=== PATIENT | female | born 1950 | race Caucasian/White ===

== ENCOUNTER 2018-04-27 08:29 | Emergency (ER) | payer OTHER ==
[2018-04-27] MEDS: KETOROLAC 30 MG INJ IM (09:28)
== END 2018-04-27 10:20 | disposition home or self-care (01) ==
LOC: FTE 08:29
DX: S49.91XA Unspecified injury of right shoulder and upper arm, initial encounter (principal); W18.39XA Other fall on same level, initial encounter; Y92.9 Unspecified place or not applicable
CPT/HCPCS: 73030; 73030-RT; 96372; 99284-25

== ENCOUNTER 2018-09-03 11:42 | Emergency (ER) | payer OTHER | END 2018-09-03 15:16 | disposition home or self-care (01) | LOC: FTE 11:42 | DX: L02.411 Cutaneous abscess of right axilla (principal) | CPT/HCPCS: 76536; 99284-25 ==

== ENCOUNTER 2018-10-05 08:08 | Inpatient (IN) | payer OTHER ==
[~2018-10-05 08:08] MED LIST: BUPIVACAINE 0.75%/DEXT (SPINAL) 2 ML INJ
[2018-10-05] MEDS ORDERED: MEPERIDINE 25 MG INJ IV (11:00)
[2018-10-05] MEDS ORDERED: hydrALAzine 20 MG INJ IV ×2 (11:00→19:30)
[2018-10-05] MEDS ORDERED: ONDANSETRON 4 MG INJ IV (11:00)
[2018-10-05] MEDS ORDERED: HYDROmorphONE 1 MG/5 ML IV SYRINGE IV ×2 (11:00)
[2018-10-05] MEDS ORDERED: EPHEDrine SULFATE 50 MG/5 ML SYG IV (11:00)
[2018-10-05] MEDS ORDERED: LABETALOL HCL 20MG INJ IV (11:00)
[2018-10-05] MEDS ORDERED: DIPHENHYDRAMINE 50 MG INJ IV (11:00)
[2018-10-05] MEDS ORDERED: ROPIVACAINE 0.2% 20 ML VIAL (11:01)
[2018-10-05] MEDS ORDERED: METOCLOPRAMIDE 10 MG INJ (11:01)
[2018-10-05] MEDS ORDERED: PROPOFOL 20 ML (11:01)
[2018-10-05] MEDS ORDERED: MIDAZOLAM 1 MG/ML 2 ML INJ (11:01)
[2018-10-05] MEDS ORDERED: morphine SULFATE/PF (10 MG/10 ML) INJ (11:01)
[2018-10-05] MEDS ORDERED: ACETAMINOPHEN 1000MG/100ML IV 100 ML (11:04)
[2018-10-05] MEDS ORDERED: CEFAZOLIN 1 GM INJ (11:16)
[2018-10-05] MEDS ORDERED: FENTAnyl 50 MCG/ML VIAL (11:17)
[2018-10-05] MEDS ORDERED: EPHEDrine SULFATE 50 MG/5 ML SYG (11:23)
[2018-10-05] MEDS: DEXTROSE 5% IVPB (11:30)
[2018-10-05] MEDS: TRANEXAMIC ACID IVPB (11:30)
[2018-10-05] MEDS: POLYMYXIN/BACITRACIN 1L IRRIG IRR (12:09)
[2018-10-05] MEDS ORDERED: METOPROLOL 5 MG INJ (12:44)
[2018-10-05] MEDS ORDERED: ONDANSETRON 4 MG INJ (13:03)
[2018-10-05] MEDS: HYDROmorphONE 1 MG/5 ML IV SYRINGE IV (13:22)
[2018-10-05] MEDS ORDERED: oxyCODONE 5 MG TAB PO (13:30)
[2018-10-05] MEDS ORDERED: NALOXONE (0.4 MG/ML) INJ IV (13:30)
[2018-10-05] MEDS: CEFAZOLIN 1 GM/50 ML (PMX) 50 ML IVPB ×2 (13:46→20:43)
[2018-10-05] MEDS: ONDANSETRON 4 MG INJ IV ×2 (13:46→20:24)
[2018-10-05] MEDS: SOD CHLORIDE 0.9% 1,000 ML IV (16:06)
[2018-10-06] MEDS: ONDANSETRON 4 MG INJ IV ×2 (01:30→09:32)
[2018-10-06] MEDS: SOD CHLORIDE 0.9% 1,000 ML IV ×3 (01:41→14:11)
[2018-10-06] MEDS: CEFAZOLIN 1 GM/50 ML (PMX) 50 ML IVPB (04:50)
[2018-10-06] MEDS: PANTOPRAZOLE (EC) 40 MG TAB PO (05:07)
[2018-10-06] MEDS: oxyCODONE 5 MG TAB PO ×2 (05:08→15:13)
[2018-10-06 05:10] LABS: ADD MAN DIFF? NO
[2018-10-06 05:13] LABS: WHITE BLOOD COUNT 6.7 10^3/ul (4.8-10.8)
[2018-10-06 05:13] LABS: BASOPHILS % 0.3 % (0.0-2.0); EOSINOPHILS % 0.1 % (0.0-7.0); HEMATOCRIT 32.3 % (37.0-47.0); LYMPHOCYTES # 1.6 10^3/ul (0.8-2.9); LYMPHOCYTES % 24.1 % (15.0-51.0); MEAN CORPUSCULAR HEMOGLOBIN 27.3 pg (29.0-33.0); MEAN CORPUSCULAR VOLUME 88.3 fl (82.0-101.0); MEAN PLATELET VOLUME 9.8 fl (7.4-10.4); MONOCYTE # 0.8 10^3/ul (0.3-0.9); NEUTROPHIL # 4.3 10^3/ul (1.6-7.5); NEUTROPHILS % 63.2 % (39.0-77.0); PLATELET COUNT 193 10^3/UL (140-415); RED BLOOD COUNT 3.66 10^6/ul (4.20-5.40); RED CELL DISTRIBUTION WIDTH 12.9 % (11.5-14.5)
[2018-10-06 05:38] LABS: ANION GAP 5 (5-13); BLOOD UREA NITROGEN 11 mg/dl (7-20); CALCIUM 8.1 mg/dl (8.4-10.2); CARBON DIOXIDE 32 mmol/L (21-31); CHLORIDE 103 mmol/L (97-110); CREATININE 0.65 mg/dl (0.44-1.00); Estimated GFR > 60 mL/min (>60); GLUCOSE 107 mg/dl (70-220); POTASSIUM 4.9 mmol/L (3.5-5.1); SODIUM 140 mmol/L (135-144)
[2018-10-06] MEDS: morphine 2 MG INJ IV ×4 (07:21→21:18)
[2018-10-06] MEDS: DOCUSATE SODIUM 100 MG CAP PO ×2 (09:33→21:08)
[2018-10-06] MEDS: ENOXAPARIN 30 MG/0.3 ML SYG SC ×2 (09:42→21:14)
[2018-10-06] MEDS ORDERED: oxyCODONE 15 MG TAB PO ×2 (21:30)
[2018-10-07] MEDS: SOD CHLORIDE 0.9% 1,000 ML IV ×2 (02:41→15:11)
[2018-10-07] MEDS: morphine 2 MG INJ IV ×3 (03:13→11:14)
[2018-10-07 05:34] LABS: ADD MAN DIFF? NO
[2018-10-07] MEDS: PANTOPRAZOLE (EC) 40 MG TAB PO (05:35)
[2018-10-07] MEDS: SENNA/DOCUSATE NA (8.6MG/50MG) TAB PO (05:36)
[2018-10-07 05:45] LABS: BASOPHILS % 0.3 % (0.0-2.0); EOSINOPHILS % 0.1 % (0.0-7.0); HEMATOCRIT 32.8 % (37.0-47.0); HEMOGLOBIN 10.4 g/dl (12.0-16.0); LYMPHOCYTES # 1.5 10^3/ul (0.8-2.9); LYMPHOCYTES % 20.2 % (15.0-51.0); MEAN CORPUSCULAR HEMOGLOBIN 27.4 pg (29.0-33.0); MEAN CORPUSCULAR HGB CONC 31.7 g/dl (32.0-37.0); MEAN CORPUSCULAR VOLUME 86.3 fl (82.0-101.0); MEAN PLATELET VOLUME 10.4 fl (7.4-10.4); NEUTROPHIL # 4.8 10^3/ul (1.6-7.5); NEUTROPHILS % 65.3 % (39.0-77.0); PLATELET COUNT 205 10^3/UL (140-415); RED CELL DISTRIBUTION WIDTH 12.8 % (11.5-14.5)
[2018-10-07 05:45] LABS: WHITE BLOOD COUNT 7.3 10^3/ul (4.8-10.8)
[2018-10-07] MEDS: DOCUSATE SODIUM 100 MG CAP PO ×2 (09:12→20:54)
[2018-10-07] MEDS: ENOXAPARIN 30 MG/0.3 ML SYG SC ×2 (09:13→20:58)
[2018-10-07] MEDS ORDERED: oxyCODONE 5 MG TAB PO (11:20)
[2018-10-07] MEDS: oxyCODONE 5 MG TAB PO (13:59)
[2018-10-08] MEDS: SOD CHLORIDE 0.9% 1,000 ML IV ×2 (03:41→16:11)
[2018-10-08 05:02] LABS: ADD MAN DIFF? NO
[2018-10-08 05:13] LABS: BASOPHILS % 0.4 % (0.0-2.0); EOSINOPHILS % 0.5 % (0.0-7.0); HEMATOCRIT 33.4 % (37.0-47.0); HEMOGLOBIN 10.5 g/dl (12.0-16.0); LYMPHOCYTES # 1.3 10^3/ul (0.8-2.9); MEAN CORPUSCULAR HEMOGLOBIN 27.1 pg (29.0-33.0); MEAN CORPUSCULAR HGB CONC 31.4 g/dl (32.0-37.0); MEAN CORPUSCULAR VOLUME 86.3 fl (82.0-101.0); MEAN PLATELET VOLUME 9.9 fl (7.4-10.4); MONOCYTE # 0.8 10^3/ul (0.3-0.9); MONOCYTES % 10.8 % (0.0-11.0); NEUTROPHIL # 5.4 10^3/ul (1.6-7.5); PLATELET COUNT 232 10^3/UL (140-415); RED BLOOD COUNT 3.87 10^6/ul (4.20-5.40); RED CELL DISTRIBUTION WIDTH 12.7 % (11.5-14.5)
[2018-10-08 05:13] LABS: WHITE BLOOD COUNT 7.6 10^3/ul (4.8-10.8)
[2018-10-08] MEDS: ONDANSETRON 4 MG INJ IV (06:19)
[2018-10-08] MEDS: PANTOPRAZOLE (EC) 40 MG TAB PO (06:19)
[2018-10-08] MEDS: DOCUSATE SODIUM 100 MG CAP PO ×3 (09:00→21:20)
[2018-10-08] MEDS: morphine 2 MG INJ IV (09:36)
[2018-10-08] MEDS: ENOXAPARIN 30 MG/0.3 ML SYG SC ×2 (09:37→21:26)
[2018-10-08] MEDS: oxyCODONE 5 MG TAB PO ×2 (13:48→17:15)
[2018-10-09] MEDS: oxyCODONE 5 MG TAB PO ×3 (03:48→23:19)
[2018-10-09] MEDS: SOD CHLORIDE 0.9% 1,000 ML IV ×2 (04:41→17:11)
[2018-10-09 05:05] LABS: ADD MAN DIFF? NO
[2018-10-09 05:13] LABS: BASOPHILS % 0.2 % (0.0-2.0); EOSINOPHILS # 0.1 10^3/ul (0.0-0.5); EOSINOPHILS % 1.7 % (0.0-7.0); HEMATOCRIT 31.9 % (37.0-47.0); HEMOGLOBIN 9.8 g/dl (12.0-16.0); LYMPHOCYTES # 1.7 10^3/ul (0.8-2.9); LYMPHOCYTES % 31.5 % (15.0-51.0); MEAN CORPUSCULAR HGB CONC 30.7 g/dl (32.0-37.0); MEAN CORPUSCULAR VOLUME 87.9 fl (82.0-101.0); MEAN PLATELET VOLUME 9.7 fl (7.4-10.4); MONOCYTE # 0.7 10^3/ul (0.3-0.9); MONOCYTES % 13.5 % (0.0-11.0); NEUTROPHIL # 2.8 10^3/ul (1.6-7.5); NEUTROPHILS % 52.7 % (39.0-77.0); PLATELET COUNT 265 10^3/UL (140-415); RED BLOOD COUNT 3.63 10^6/ul (4.20-5.40); RED CELL DISTRIBUTION WIDTH 12.4 % (11.5-14.5)
[2018-10-09 05:13] LABS: WHITE BLOOD COUNT 5.3 10^3/ul (4.8-10.8)
[2018-10-09 05:39] LABS: ANION GAP 2 (5-13); BLOOD UREA NITROGEN 16 mg/dl (7-20); CARBON DIOXIDE 36 mmol/L (21-31); CHLORIDE 97 mmol/L (97-110); CREATININE 0.74 mg/dl (0.44-1.00); Estimated GFR > 60 mL/min (>60); GLUCOSE 108 mg/dl (70-220); SODIUM 135 mmol/L (135-144)
[2018-10-09] MEDS: PANTOPRAZOLE (EC) 40 MG TAB PO (05:50)
[2018-10-09] MEDS: morphine 2 MG INJ IV (09:12)
[2018-10-09] MEDS: DIPHENHYDRAMINE 50 MG INJ IM (09:13)
[2018-10-09] MEDS: ENOXAPARIN 30 MG/0.3 ML SYG SC (09:15)
[2018-10-09] MEDS ORDERED: APIXABAN 5 MG TABLET PO (21:00)
[2018-10-10 05:09] LABS: ADD MAN DIFF? NO
[2018-10-10 05:17] LABS: WHITE BLOOD COUNT 5.5 10^3/ul (4.8-10.8)
[2018-10-10 05:17] LABS: BASOPHILS % 0.5 % (0.0-2.0); EOSINOPHILS # 0.1 10^3/ul (0.0-0.5); EOSINOPHILS % 2.2 % (0.0-7.0); HEMATOCRIT 31.7 % (37.0-47.0); HEMOGLOBIN 9.7 g/dl (12.0-16.0); LYMPHOCYTES % 36.3 % (15.0-51.0); MEAN CORPUSCULAR HEMOGLOBIN 26.8 pg (29.0-33.0); MEAN CORPUSCULAR HGB CONC 30.6 g/dl (32.0-37.0); MEAN CORPUSCULAR VOLUME 87.6 fl (82.0-101.0); MEAN PLATELET VOLUME 9.5 fl (7.4-10.4); MONOCYTE # 0.7 10^3/ul (0.3-0.9); MONOCYTES % 12.8 % (0.0-11.0); NEUTROPHIL # 2.6 10^3/ul (1.6-7.5); NEUTROPHILS % 47.8 % (39.0-77.0); PLATELET COUNT 281 10^3/UL (140-415); RED BLOOD COUNT 3.62 10^6/ul (4.20-5.40); RED CELL DISTRIBUTION WIDTH 12.6 % (11.5-14.5)
[2018-10-10] MEDS: SOD CHLORIDE 0.9% 1,000 ML IV ×2 (05:41→18:11)
[2018-10-10] MEDS: PANTOPRAZOLE (EC) 40 MG TAB PO (06:24)
[2018-10-10] MEDS: oxyCODONE 5 MG TAB PO ×4 (06:25→22:11)
[2018-10-11] MEDS: oxyCODONE 5 MG TAB PO ×3 (03:27→16:43)
[2018-10-11 05:23] LABS: ADD MAN DIFF? NO
[2018-10-11 05:25] LABS: WHITE BLOOD COUNT 6.3 10^3/ul (4.8-10.8)
[2018-10-11 05:25] LABS: BASOPHILS % 0.5 % (0.0-2.0); EOSINOPHILS # 0.1 10^3/ul (0.0-0.5); EOSINOPHILS % 2.1 % (0.0-7.0); HEMATOCRIT 31.6 % (37.0-47.0); HEMOGLOBIN 9.7 g/dl (12.0-16.0); LYMPHOCYTES # 1.9 10^3/ul (0.8-2.9); LYMPHOCYTES % 29.6 % (15.0-51.0); MEAN CORPUSCULAR HEMOGLOBIN 26.7 pg (29.0-33.0); MEAN CORPUSCULAR HGB CONC 30.7 g/dl (32.0-37.0); MEAN CORPUSCULAR VOLUME 87.1 fl (82.0-101.0); MEAN PLATELET VOLUME 9.5 fl (7.4-10.4); MONOCYTE # 0.8 10^3/ul (0.3-0.9); MONOCYTES % 12.7 % (0.0-11.0); NEUTROPHIL # 3.4 10^3/ul (1.6-7.5); NEUTROPHILS % 54.5 % (39.0-77.0); PLATELET COUNT 288 10^3/UL (140-415); RED BLOOD COUNT 3.63 10^6/ul (4.20-5.40); RED CELL DISTRIBUTION WIDTH 12.8 % (11.5-14.5)
[2018-10-11] MEDS: MAGNESIUM HYDROXIDE 30ML CUP PO (06:16)
[2018-10-11] MEDS: PANTOPRAZOLE (EC) 40 MG TAB PO (06:16)
[2018-10-11] MEDS: SOD CHLORIDE 0.9% 1,000 ML IV ×2 (06:41→19:11)
[2018-10-11] MEDS: APIXABAN 5 MG TABLET PO ×2 (09:19→21:19)
[2018-10-12] MEDS: oxyCODONE 5 MG TAB PO (02:47)
[2018-10-12 05:05] LABS: ADD MAN DIFF? NO
[2018-10-12 05:07] LABS: WHITE BLOOD COUNT 6.4 10^3/ul (4.8-10.8)
[2018-10-12 05:07] LABS: BASOPHILS % 0.5 % (0.0-2.0); EOSINOPHILS # 0.1 10^3/ul (0.0-0.5); EOSINOPHILS % 1.9 % (0.0-7.0); HEMATOCRIT 31.9 % (37.0-47.0); HEMOGLOBIN 9.9 g/dl (12.0-16.0); LYMPHOCYTES # 1.8 10^3/ul (0.8-2.9); LYMPHOCYTES % 28.8 % (15.0-51.0); MEAN CORPUSCULAR VOLUME 86.9 fl (82.0-101.0); MEAN PLATELET VOLUME 9.3 fl (7.4-10.4); MONOCYTE # 0.9 10^3/ul (0.3-0.9); MONOCYTES % 13.8 % (0.0-11.0); NEUTROPHIL # 3.5 10^3/ul (1.6-7.5); NEUTROPHILS % 54.4 % (39.0-77.0); PLATELET COUNT 322 10^3/UL (140-415); RED BLOOD COUNT 3.67 10^6/ul (4.20-5.40)
[2018-10-12] MEDS: PANTOPRAZOLE (EC) 40 MG TAB PO (05:29)
[2018-10-12] MEDS: SENNA/DOCUSATE NA (8.6MG/50MG) TAB PO (05:29)
== END 2018-10-12 08:50 | disposition home health service (06) | DRG 470 ==
LOC: REC 08:08 → MS1 10-06 01:52
PROC: 0SRC0J9 Replacement of Right Knee Joint with Synthetic Substitute, Cemented, Open Approach (ICD-10-PCS; principal; 2018-10-05 11:00)
DX: M17.11 Unilateral primary osteoarthritis, right knee (principal); E78.5 Hyperlipidemia, unspecified; E66.9 Obesity, unspecified; Z68.33 Body mass index [BMI] 33.0-33.9, adult; I10 Essential (primary) hypertension; E78.00 Pure hypercholesterolemia, unspecified
CPT/HCPCS: 73560; 80048; 85025; 87086; 88304; 88311; 97110; 97116; 97161; 97530

== ENCOUNTER 2018-10-24 10:06 | Emergency (ER) | payer OTHER | END 2018-10-24 12:28 | disposition home or self-care (01) | LOC: FTE 10:06 | DX: L72.3 Sebaceous cyst (principal); R40.2412 Glasgow coma scale score 13-15, at arrival to emergency department; I10 Essential (primary) hypertension; E66.9 Obesity, unspecified; Z85.828 Personal history of other malignant neoplasm of skin; Z96.651 Presence of right artificial knee joint | CPT/HCPCS: 10060; 99282-25 ==

== ENCOUNTER 2018-10-26 09:24 | Emergency (ER) | payer OTHER ==
[2018-10-26] MEDS: LIDOCAINE 4% CR TOP (10:48)
== END 2018-10-26 11:53 | disposition home or self-care (01) ==
LOC: FTE 09:24
DX: L72.0 Epidermal cyst (principal); I10 Essential (primary) hypertension; E66.9 Obesity, unspecified; Z68.31 Body mass index [BMI] 31.0-31.9, adult; Z87.891 Personal history of nicotine dependence; Z96.651 Presence of right artificial knee joint
CPT/HCPCS: 10060; 99283-25

== ENCOUNTER 2018-10-30 15:59 | Emergency (ER) | payer OTHER ==
[2018-10-30] MEDS: TRIAMCINOLONE ACET 40 MG/ML INJ INJ (19:07)
[2018-10-30] MEDS: LIDOCAINE 4% CR TOP (19:07)
== END 2018-10-30 20:35 | disposition home or self-care (01) ==
LOC: FTE 15:59
DX: L72.9 Follicular cyst of the skin and subcutaneous tissue, unspecified (principal); I10 Essential (primary) hypertension; E66.9 Obesity, unspecified; Z85.820 Personal history of malignant melanoma of skin; Z87.891 Personal history of nicotine dependence; Z96.651 Presence of right artificial knee joint
CPT/HCPCS: 10060; 99283-25